=== PATIENT | male | born 1935 | race Caucasian/White ===

== ENCOUNTER → 2023-10-11 09:13 | Outpatient (REF) | payer OTHER, SELFPAY ==
[2023-10-11 10:24] LABS: % Basophils 0.5 % (0-2); % Eosinophils 5.7 % (0-6); % Immature Granulocytes 0.4 % (0-0.5); % Lymphocytes 26.5 % (20.5-51.1); % Monocytes 6.7 % (1.7-9.3); % Neutrophils 60.2 % (42.2-75.2); Absolute Eosinophils 0.5 10^3/uL (0-0.7); Absolute Lymphocytes 2.1 10^3/uL (1.2-3.4); Absolute Monocytes 0.5 10^3/uL (0.1-0.6); Absolute Neutrophils 4.8 10^3/uL (1.4-6.5); Hematocrit 41.4 % (39.0-52.0); Hemoglobin 13.7 g/dL (13.0-18.0); Mean Corp Hgb Conc. 33.1 g/dL (33.0-37.0); Mean Corpuscular Hgb 33.4 pg (27.0-31.0); Nucleated Red Blood Cells % 0 % (-); Platelet Count 215 10^3/uL (130-400); Red Cell Dist. Width 13.5 % (11.5-14.5)
[2023-10-11 11:12] LABS: ALT (SGPT) 35 U/L (0-50); AST (SGOT) 31 U/L (17-59); Albumin 4.3 g/dl (3.5-5.0); Alkaline Phosphatase 104 U/L (38-126); Blood Urea Nitrogen 22 mg/dl (9-20); Carbon Dioxide 28 mmol/L (22-30); Chloride 103 mmol/L (98-107); Glucose 131 mg/dl (70-99); HDL Cholesterol 56 mg/dl; LDL Cholesterol, Calculated 64 mg/dl; Potassium 4.5 mmol/L (3.5-5.1); Sodium 141 mmol/L (135-145); Total Bilirubin 0.9 mg/dl (0.2-1.3); Total Cholesterol 134 mg/dl (50-199); Total Protein 7.9 g/dl (6.3-8.2); Triglyceride 74 mg/dl (10-149); Very Low Density Lipoprotein 14 mg/dl (0-30); eGFR > 60.00
== END ==
LOC: REG 09:13
PROVIDERS: ATTENDING PHYSICIAN Internal Medicine
DX: I48.20 Chronic atrial fibrillation, unspecified (principal); I63.9 Cerebral infarction, unspecified; E78.5 Hyperlipidemia, unspecified
CPT/HCPCS: 36415; 80053; 80061; 85025

== ENCOUNTER 2024-09-04 09:03 | Emergency (ER) | payer OTHER, SELFPAY ==
[2024-09-04 09:11] VITALS: BMI 27.2
[2024-09-04 09:16] VITALS: BP 160/106
[2024-09-04 09:36] LABS: % Basophils 0.4 % (0-2); % Eosinophils 4.5 % (0-6); % Immature Granulocytes 0.4 % (0-0.5); % Lymphocytes 23.1 % (20.5-51.1); % Monocytes 7.5 % (1.7-9.3); % Neutrophils 64.1 % (42.2-75.2); Absolute Eosinophils 0.3 10^3/uL (0-0.7); Absolute Lymphocytes 1.6 10^3/uL (1.2-3.4); Absolute Monocytes 0.5 10^3/uL (0.1-0.6); Absolute Neutrophils 4.3 10^3/uL (1.4-6.5); Hematocrit 39.9 % (39.0-52.0); Hemoglobin 13.8 g/dL (13.0-18.0); Mean Corp Hgb Conc. 34.6 g/dL (33.0-37.0); Mean Corpuscular Hgb 33.7 pg (27.0-31.0); Mean Corpuscular Volume 97.6 fL (80.0-94.0); Mean Platelet Volume 9.9 fL (7.4-10.4); Nucleated Red Blood Cells % 0 % (-); Platelet Count 201 10^3/uL (130-400); Red Blood Cell Count 4.09 10^6/uL (4.70-6.10); Red Cell Dist. Width 13.6 % (11.5-14.5); White Blood Cell Count 6.7 10^3/uL (4.8-10.8)
[2024-09-04 09:45] LABS: COVID-19 Antigen Negative (Negative)
[2024-09-04 09:48] LABS: ALT (SGPT) 24 U/L (0-50); AST (SGOT) 23 U/L (17-59); Albumin 4.3 g/dl (3.5-5.0); Alkaline Phosphatase 97 U/L (38-126); Blood Urea Nitrogen 21 mg/dl (9-20); Calcium 9.8 mg/dl (8.4-10.2); Carbon Dioxide 26 mmol/L (22-30); Chloride 104 mmol/L (98-107); Estimated Creatinine Clearance 51 ml/min; Glucose 147 mg/dl (70-99); Potassium 4.3 mmol/L (3.5-5.1); Sodium 143 mmol/L (135-145); Total Bilirubin 1.1 mg/dl (0.2-1.3); Total Protein 7.3 g/dl (6.3-8.2); eGFR > 60.00
[2024-09-04 10:00] VITALS: BP 173/106
[2024-09-04 10:00] LABS: Troponin I < 0.012 ng/ml
--- NOTE | 2024-09-04 10:16 | ED.GENMED ---
History of Present Illness
General
Chief Complaint: Failure to Thrive
Source: patient
Exam Limitations: none
Time Seen by Provider: 09/04/24 09:05
Nursing documentation reviewed up to this point in time: agreed with
History of Present Illness
History of Present Illness:
88-year-old male presents emergency department due to shakiness, and feeling unwell. He denies chest pain or shortness of breath.
Past History
Past History
ED Past Medical History: Arrthythmia (Atrial fibrillation), HTN and Hypercholesterolemia
ED Past Surgical History: Tonsilectomy and Other (Vasectomy)
Social History
Tobacco: Non-smoker
Alcohol: None
Drug: None
Personal:
Living: with family
Review of Systems
Review of Systems
Allergies reviewed?: Yes
All Other Systems: Not applicable
Constitutional: Reports no symptoms
EENT: Reports no symptoms
Respiratory: Reports no symptoms; Denies trouble breathing
Cardiac: Reports no symptoms; Denies chest pain
ABD/GI: Reports no symptoms
: Reports no symptoms
Musculoskeletal: Reports no symptoms
Skin: Reports no symptoms
Neurological: Reports no symptoms
Endocrine: Reports no symptoms
Hematologic/Lymphatic: Reports no symptoms
Psychiatric: Reports no symptoms
Phy Exam
Physical Exam
Physical Exam:
Physical Exam
General: no apparent distress, not acutely ill
Neck: supple. no meningeal signs. normal posterior pharynx
Heart: s1/s2 regular rate and rhythm, no murmur. equal radial
pulses.
HEENT: Pupils equal round reactive to light, EOMI
Lungs: no acute respiratory distress. clear bilaterally
Abdomen: normal bowel sounds. not tender. no CVAT
Neuro: alert and oriented. no focal neurological deficits cranial nerves II through XII intact
Skin: no rash
Psychiatric: well kept. interactive and cooperative
Extremities: no edema. no calf tenderness. negative homans. good distal pulses
Course
Orders/Labs/Results
Orders:
Orders
09/04/24 09:17
Electrocardiogram (*1) Urgent
Reason for Study: Atrial Fibrillation
09/04/24 09:18
CT Head W/o Iv Contrast Urgent
Comment:
Reason For Exam: weakness, shaky
EKG- Treatment ONCE
09/04/24 09:19
CMP [Comprehensive Metabolic Panel] Urgent
COVID-19 Antigen Urgent
Source: Nasal Swab
Complete Blood Count/With Diff Urgent
Troponin I Urgent
Influenza A+B Rapid Molecular Urgent
JEFFRY Source: Nasal Swab
Specimen Description:
Abnormal Lab Results
09/04/24
09:19
RBC 4.09 L 10^6/uL
(4.70-6.10)
MCV 97.6 H fL
(80.0-94.0)
MCH 33.7 H pg
(27.0-31.0)
BUN 21 H mg/dl
(9-20)
Glucose 147 H mg/dl
(70-99)
09/04/24 09:19
09/04/24 09:19
Vital Signs
Initial and Last Documented VS:
Initial Vital Signs
Pulse Resp
85 23
09/04/24 09:12 09/04/24 09:12
Last Documented Vital Signs
Pulse Resp BP Pulse Ox
74 18 173/106 97
09/04/24 10:45 09/04/24 10:45 09/04/24 10:00 09/04/24 10:45
MDM/Problems Addressed
Differential Diagnosis Includes:
CVA, hypertensive urgency
MDM/Problems Addressed:
88-year-old male with elevated blood pressure, and shakiness, unclear etiology. No signs of CVA. Stable for discharge.
Chronic conditions affecting care: HTN
Acute Exacerbation and/or Progression of Chronic Illness: HTN
*Radiology
Radiology exam reviewed: radiology read reviewed (CT head no acute findings)
*Pulse Oximetry
Patient hypoxic: no
*EKG
Interpreted by ED Provider?: Yes
EKG Intrepretation Date: 09/04/24
EKG Intrepretation Time: 09:24
Interpretation: abnormal
Comparison EKG: changes noted
Heart Rate: 68
Rate: normal
Rhythm: a-fib
[place]: normal axis
Interval: normal interval
QRS Pattern: normal QRS
Ischemia: no ischemia
*Founder Ceo & President Interpretation
Rate: normal
Interpretation: abnormal
Heart Rate: 65
Rhythm: a-fib
*Critical Care Note
Total Time (30-74mins, 75-104mins- exclusive of procedures): Not Applicable
Data Reviewed
Review of Other/Old Records Reveals: Labs (cr 1.0 on 10/11/23)
Source: records
Patient Management
Social determinants of health affecting care: Living situation and Strong social support
Escalation/DeEscalation of care consider admission/obs:
admit not indicated
ED Attending Note
-
Portions of this chart may have been created with voice recognition software.� Occasional wrong word or��sound alike� substitutions may have occurred due to the inherent limitations of voice recognition software.
Discharge Plan
Departure
Patient Disposition: Home (Routine Discharge)
Date of Disposition: 09/04/24
Time of Disposition: 11:17
Patient with high blood pressure during this ER visit?: Yes
Condition: Good
Discharge Problem:
Hypertension, Weakness
Instructions: Weakness, BLOOD PRESSURE
Referrals:
Ferny Clifford MD [Family Provider] - Call in 1-3 days for appt
Interventions
Interventions:
*Risk Screen - Suicide Last Done: 09/04/24 09:07
*General Assessment Last Done: 09/04/24 09:07
*Neglect/Abuse Screening Last Done: 09/04/24 09:07
*ED- Fall Risk Assessment Last Done: 09/04/24 09:07
*ED COVID-19 Vaccine History Last Done: 09/04/24 09:07
*Nursing Disposition Last Done: 09/04/24 11:47
Discharge Date and Time
Discharge Date/Time: 09/04/24 11:49
Print Language: SERBIAN
== END 2024-09-04 11:49 | disposition home or self-care (01) ==
LOC: EMR 09:03
PROVIDERS: EMERGENCY PHYSICIAN Emergency Medicine; FAMILY PHYSICIAN Internal Medicine
DX: I10 Essential (primary) hypertension (principal); R53.1 Weakness; E78.00 Pure hypercholesterolemia, unspecified; I48.91 Unspecified atrial fibrillation; Z11.52 Encounter for screening for COVID-19
CPT/HCPCS: 99284; 70450; 80053; 84484; 85025; 87502; 87811; 93005

== ENCOUNTER 2024-09-08 11:16 | Emergency (ER) | payer OTHER, SELFPAY ==
[2024-09-08] VITALS (7 sets, daily range): BP systolic 140–180; BP diastolic 100–108; PULSE 70–99; O2SAT 98
[2024-09-08 12:04] LABS: % Basophils 0.4 % (0-2); % Immature Granulocytes 0.3 % (0-0.5); % Lymphocytes 22.6 % (20.5-51.1); % Monocytes 5.7 % (1.7-9.3); Absolute Eosinophils 0.2 10^3/uL (0-0.7); Absolute Lymphocytes 1.8 10^3/uL (1.2-3.4); Absolute Monocytes 0.5 10^3/uL (0.1-0.6); Absolute Neutrophils 5.4 10^3/uL (1.4-6.5); Hematocrit 40.7 % (39.0-52.0); Mean Corp Hgb Conc. 34.4 g/dL (33.0-37.0); Mean Corpuscular Hgb 33.5 pg (27.0-31.0); Mean Corpuscular Volume 97.4 fL (80.0-94.0); Nucleated Red Blood Cells % 0 % (-); Platelet Count 198 10^3/uL (130-400); Red Blood Cell Count 4.18 10^6/uL (4.70-6.10); Red Cell Dist. Width 13.6 % (11.5-14.5); White Blood Cell Count 7.9 10^3/uL (4.8-10.8)
[2024-09-08 12:24] LABS: INR 1.45; PT 17.9 Sec (11.4-14.6)
--- NOTE | 2024-09-08 13:56 | ED.GENMED ---
History of Present Illness
General
Chief Complaint: Weakness
Source: patient and spouse
Exam Limitations: none
Time Seen by Provider: 09/08/24 13:40
Nursing documentation reviewed up to this point in time: agreed with
History of Present Illness
History of Present Illness:
Patient with history of hypertension, chronic atrial fibrillation on Eliquis, TIA with residual gait abnormality, presents to ED secondary to intermittent episodes of generalized weakness, worsening over the past 4 days. Denies headache. Denies
dizziness. Denies blurred vision. Denies loss of sensation. Denies difficulty with speech. Denies chest pain or shortness of breath. Denies nausea, vomiting, or diarrhea. Denies recent illness. Denies recent change in medications or diet.
Patient was seen in ED for similar complaint last week, where his blood pressure was noted to be high. Patient spoke with his primary care physician over the weekend and losartan was added. Denies loss of appetite. Denies difficulty with
sleeping. Denies drinking alcohol. Patient does drink 1 cup of tea a day.
Past History
Past History
ED Past Medical History: Arrthythmia (Atrial fibrillation), HTN and Hypercholesterolemia
ED Past Surgical History: Tonsilectomy and Other (Vasectomy)
Social History
Tobacco: Non-smoker
Alcohol: None
Drug: None
Personal:
Living: with family
Review of Systems
Review of Systems
Allergies reviewed?: Yes
All Other Systems: ROS reviewed and negative except as documented in HPI and ROS
Constitutional: Reports no symptoms
EENT: Reports no symptoms
Respiratory: Reports no symptoms; Denies cough
Cardiac: Reports no symptoms; Denies chest pain, diaphoresis, palpitations or syncope
ABD/GI: Reports no symptoms; Denies vomiting or diarrhea
: Reports no symptoms
Musculoskeletal: Reports no symptoms
Skin: Reports no symptoms
Neurological: Reports weakness; Denies dizzy or headache
Phy Exam
Physical Exam
Physical Exam:
Physical Exam
General: no apparent distress, not acutely ill. afebrile
Head: nc/at. eomi
Neck: supple. normal range of motion.
Heart: irregularly irregular., no murmur
Lungs: no acute respiratory distress. clear bilaterally
Abdomen: normal bowel sounds. not tender.
Neuro: alert and oriented x 3. no focal neurological deficits. normal speech
Skin: no rash
Psychiatric: well kept. interactive and cooperative
Extremities: no edema. no calf tenderness.
Course
Orders/Labs/Results
Orders:
Orders
09/08/24 11:34
Electrocardiogram (*1) Urgent
Reason for Study: Chest Pain
EKG- Treatment ONCE
09/08/24 11:52
Complete Blood Count/With Diff Urgent
Prothrombin Time Urgent
09/08/24 13:40
Comprehensive Metabolic Panel Routine
Magnesium Routine
Comment: ADD ON TO LABS
TSH Routine
Comment: ADD ON TO LABS
Troponin I Routine
09/08/24 13:54
Add On- LAB Urgent
Tests Added?: magnesium
Orthostatic VS- Treatment ONCE
TSH Urgent
Physical Therapy Consult [Pt Eval And Treat] Urgent
Activity Level: Ambulate
09/08/24 13:57
Add On- LAB Urgent
Tests Added?: tsh
09/08/24 14:19
0.9% Sodium Chloride 500 ml [Nss] 500 ml IV BOLUS
09/08/24 14:25
EKG- Treatment ONCE
Abnormal Lab Results
09/08/24 09/08/24
11:52 13:40
RBC 4.18 L 10^6/uL
(4.70-6.10)
MCV 97.4 H fL
(80.0-94.0)
MCH 33.5 H pg
(27.0-31.0)
PT 17.9 H Sec
(11.4-14.6)
BUN 25 H mg/dl
(9-20)
Glucose 133 H mg/dl
(70-99)
09/08/24 11:52
09/08/24 13:40
Vital Signs
Initial and Last Documented VS:
Initial Vital Signs
Temp Pulse Resp BP Pulse Ox
97.6 F 75 16 140/101 96
09/08/24 11:30 09/08/24 11:30 09/08/24 11:30 09/08/24 11:30 09/08/24 11:30
Last Documented Vital Signs
Temp Pulse Resp BP Pulse Ox
97.6 F 74 16 157/102 95
09/08/24 11:30 09/08/24 16:17 09/08/24 16:25 09/08/24 16:17 09/08/24 16:17
MDM/Problems Addressed
MDM/Problems Addressed:
Patient evaluated in ED by physical therapy, who feels the patient can be discharged home safely. However, home physical therapy discussed with patient and spouse. Patient and spouse would like to go home first and discussed with his primary care
physician about arranging for home physical therapy which I believe is reasonable. In addition, advised repeat blood pressure and checkup with his primary care physician upon discharge.
*Critical Care Note
Total Time (30-74mins, 75-104mins- exclusive of procedures): Not Applicable
ED Attending Note
-
Portions of this chart may have been created with voice recognition software.� Occasional wrong word or��sound alike� substitutions may have occurred due to the inherent limitations of voice recognition software.
Discharge Plan
Departure
Patient Disposition: Home (Routine Discharge)
Date of Disposition: 09/08/24
Time of Disposition: 16:30
Patient with high blood pressure during this ER visit?: Yes
Condition: Good
Discharge Problem:
Weakness, Hypertension
Instructions: Generalized Weakness (DC), BLOOD PRESSURE
Referrals:
Ferny Clifford MD [Family Provider] -
Activity Restrictions/Additional Instructions:
As discussed, please follow-up with your primary physician for reevaluation.
Interventions
Interventions:
*Risk Screen - Suicide Last Done: 09/08/24 11:30
*General Assessment Last Done: 09/08/24 11:30
*Neglect/Abuse Screening Last Done: 09/08/24 13:42
*ED- Fall Risk Assessment Last Done: 09/08/24 13:31
*ED COVID-19 Vaccine History Last Done: 09/08/24 13:31
*Nursing Disposition Last Done: 09/08/24 16:45
ED- Cardiac Assessment Last Done: 09/08/24 13:42
ED- Neurological Assessment Last Done: 09/08/24 13:42
ED- Pulmonary Assessment Last Done: 09/08/24 13:42
Discharge Date and Time
Discharge Date/Time: 09/08/24 16:46
Print Language: PERSIAN
[2024-09-08 14:05] LABS: ALT (SGPT) 25 U/L (0-50); AST (SGOT) 27 U/L (17-59); Alkaline Phosphatase 103 U/L (38-126); Blood Urea Nitrogen 25 mg/dl (9-20); Calcium 9.9 mg/dl (8.4-10.2); Carbon Dioxide 28 mmol/L (22-30); Chloride 103 mmol/L (98-107); Glucose 133 mg/dl (70-99); Potassium 4.2 mmol/L (3.5-5.1); Sodium 140 mmol/L (135-145); Total Protein 7.4 g/dl (6.3-8.2); eGFR > 60.00
[2024-09-08 14:15] LABS: Troponin I < 0.012 ng/ml
[2024-09-08] MEDS: NSS 500 IV (14:22)
[2024-09-08 19:54] LABS: TSH 1.55 uIU/ml (0.47-4.68)
== END 2024-09-08 16:46 | disposition home or self-care (01) ==
LOC: EMR 11:16
PROVIDERS: Emergency Medicine; EMERGENCY PHYSICIAN Emergency Medicine; FAMILY PHYSICIAN Internal Medicine
DX: R53.1 Weakness (principal); I10 Essential (primary) hypertension; I48.20 Chronic atrial fibrillation, unspecified; E78.00 Pure hypercholesterolemia, unspecified; Z79.01 Long term (current) use of anticoagulants; Z86.73 Personal history of transient ischemic attack (TIA), and cerebral infarction without residual deficits; Z95.0 Presence of cardiac pacemaker
CPT/HCPCS: 99283; 96360; 80053; 83735; 84443; 84484; 85025; 85610; 93005

== ENCOUNTER → 2024-09-25 15:20 | Outpatient (REF) | payer OTHER, SELFPAY ==
[2024-09-25 16:15] LABS: % Basophils 0.5 % (0-2); % Eosinophils 4.2 % (0-6); % Immature Granulocytes 0.5 % (0-0.5); % Monocytes 8.1 % (1.7-9.3); % Neutrophils 62.7 % (42.2-75.2); Absolute Eosinophils 0.4 10^3/uL (0-0.7); Absolute Monocytes 0.7 10^3/uL (0.1-0.6); Absolute Neutrophils 5.2 10^3/uL (1.4-6.5); Hematocrit 39.7 % (39.0-52.0); Hemoglobin 13.5 g/dL (13.0-18.0); Mean Corpuscular Hgb 33.8 pg (27.0-31.0); Mean Corpuscular Volume 99.5 fL (80.0-94.0); Nucleated Red Blood Cells % 0 % (-); Platelet Count 222 10^3/uL (130-400); Red Blood Cell Count 3.99 10^6/uL (4.70-6.10); Red Cell Dist. Width 13.5 % (11.5-14.5); White Blood Cell Count 8.3 10^3/uL (4.8-10.8)
[2024-09-25 16:23] LABS: NT-proBNP 1750 pg/ml
[2024-09-25 16:26] LABS: ALT (SGPT) 27 U/L (0-50); AST (SGOT) 27 U/L (17-59); Albumin 4.3 g/dl (3.5-5.0); Alkaline Phosphatase 101 U/L (38-126); Blood Urea Nitrogen 25 mg/dl (9-20); Calcium 9.4 mg/dl (8.4-10.2); Carbon Dioxide 27 mmol/L (22-30); Chloride 105 mmol/L (98-107); Glucose 144 mg/dl (70-99); Phosphorus 3.5 mg/dl (2.5-4.5); Potassium 4.3 mmol/L (3.5-5.1); Sodium 141 mmol/L (135-145); Total Bilirubin 0.6 mg/dl (0.2-1.3); Total Protein 7.5 g/dl (6.3-8.2); eGFR > 60.00
[2024-09-25 17:15] LABS: Vitamin B12 770 pg/ml (239-931)
[2024-09-25 17:31] LABS: Erythrocyte Sed Rate 25 mm/hour (0-20)
[2024-09-26 08:47] LABS: Glycohemoglobin (HgbA1c) 5.6 % (4.0-5.6)
== END ==
LOC: RCS 15:20
PROVIDERS: ATTENDING PHYSICIAN Internal Medicine Cardiovascular Disease; FAMILY PHYSICIAN Internal Medicine
DX: I48.20 Chronic atrial fibrillation, unspecified (principal); I35.8 Other nonrheumatic aortic valve disorders; R73.01 Impaired fasting glucose; R53.1 Weakness; I48.91 Unspecified atrial fibrillation; I10 Essential (primary) hypertension
CPT/HCPCS: 36415; 80053; 82607; 83036; 83880; 84100; 85025; 85652; 93306

== ENCOUNTER → 2024-12-25 10:11 | Outpatient (REF) | payer OTHER, SELFPAY ==
[2024-12-25 11:39] LABS: TSH 1.53 uIU/ml (0.47-4.68)
== END ==
LOC: REG 10:11
PROVIDERS: ATTENDING PHYSICIAN Internal Medicine
DX: M62.81 Muscle weakness (generalized) (principal)
CPT/HCPCS: 36415; 82550; 84439; 84443